=== PATIENT | male | born 1960 | race Caucasian/White ===

== ENCOUNTER 2016-04-25 11:59 | Day surgery (SDC) | payer MEDICARE, OTHER ==
[~2016-04-25] VITALS: Ht 167.6 cm; Wt 80.8 kg
[~2016-04-25 11:59] MED LIST: ALBU18HF INH; ALPR0.5T8 PO; AMBIEN10 M1 PO; ASPI-973 PO; AZIT500T5 PO; BACL10TA PO; BUSP7.5T5 PO; MELO7.5O PO; NICO1PAT16 TRANSDERM; SILD100T PO; Sodium Chloride LOK Flush 10 mL Syringe IV PRN; [UNRECOGNIZED DRUG - CODE] PO; fentaNYL-PF 50 mCg/mL 2 mL Inj IVPUSH PRN
[2016-04-25 12:33] VITALS: BP 136/102; PULSE 90; RESP 14; O2SAT 94
[2016-04-25] MEDS: 0.9% Sodium Chloride 1,000 ML IV PRN ×2 (12:36→13:33)
--- NOTE | 2016-04-25 14:11 | PCM.ENDCOL ---
Colonoscopy Date of Service: Apr 25, 2016 Physician Woody Roth MD Indication for Procedure Personal history of colon polyp Post Procedure Dx & Findings: Polyp hemorrhoids and diverticula Procedure Colonoscopy Prep adequate Withdrawal 13 minutes PROCEDURE IN DETAIL: After unremarkable examination Olympus videocolonoscope was inserted into patient's anal canal and was advanced to cecum. Landmarks are identified including the risk of valve and appendiceal orifice. Scope was withdrawn systematically. The mucosa of the cecum, ascending, transverse, descending, sigmoid, rectal mucosa lined with whitish, pink, smooth, glistening, normal-appearing mucosa, normal fine branching, underlying vascularity, normal haustra. The patient tolerated procedure and was transported to observation area. In the cecum, there was a 2 cm patch of irregular mucosa. Narrow banding done. No clear adenomatous pattern. However the mucosal pattern in this area was slightly different from the surrounding area. It was not consistent with hyperplastic pattern either. Biopsy obtained using cold forceps. In the descending colon there was a 3 mm polyp was resected completely using cold snare. In the rectosigmoid area, there were 3 less than 1 mm polyp which was resected completely using cold forceps. In the sigmoid colon there are several small diverticuli. In the rectum retroflexion was done which showed hemorrhoids anal canal was inspected carefully and the way out and hemorrhoids noted. Impression Polyp 4 status post complete removal Subtle mucosal pattern change noted in the cecum status post biopsy Hemorrhoids Diverticuli Recommendation Repeat colonoscopy 3 years. Presedation Assessment Risks and Benefits Informed consent was obtained from the patient after all risks and benefits including but not limited to drug reaction, infection, pain, bleeding, perforation, as well as alternatives were discussed. Patient monitoring Continuous pulse oximetry, cardiac monitoring, blood pressure monitoring, IV access, and oxygen at 2L per nasal cannula. Periprocedural Fentanyl: Fentanyl 125mcg Incrementally Midazolam: Midazolam 6mg Incrementally Complications There were no periprocedural complications identified. Post Procedure Plan Post Procedure Recommendations 1. Restrict activities today. 2. Resume normal activities in the morning. 3. Resume medications. 4. Patient informed of normal post procedure side effects as bloating, drowsiness, blood streaking in the stool. 5. average risk CRCS. If colon polyps come back as: -Hyperplastic- can repeat colonoscopy in 10 years -Tubular adenoma- repeat colonoscopy in 5 years -Tubulovillous/villous adenoma- repeat colonoscopy in 3 years -If any dysplasia- return to clinic as soon as possible 6. Please don't hesitate to call me with any questions. Woody Roth MD Apr 25, 2016 14:11
[2016-04-25 14:13] VITALS: BP 120/82; PULSE 74; RESP 15; O2SAT 98
[2016-04-25 14:23] VITALS: BP 118/81; PULSE 70; RESP 15; O2SAT 97
[2016-04-25 14:33] VITALS: BP 119/89; PULSE 78; RESP 15; O2SAT 99
--- NOTE | 2016-04-27 16:32 | PATH ---
SURGICAL PATHOLOGY Attending Physician:Woody Roth M.D. CASE STATUS: Signed Out PATIENT NAME: MATEO DE LA CRUZ PID: [id number] : 1960 DATE COLLECTED:04/25/2016 00:00 SPECIMEN: 1: Colon, Biopsy 2: Colon, Biopsy 3: Colon, Biopsy CLINICAL HISTORY: 1). MUCOSAL PROMINENCE OF THE CECUM BIOPSY 2). DESCENDING COLON POLYP 3). RECTO-SIGMOID POLYPS FINAL DIAGNOSIS: 1.CECUM, MUCOSAL PROMINENCE, BIOPSY: COLONIC MUCOSA WITH NO SIGNIFICANT DIAGNOSTIC ABNORMALITY. NEGATIVE FOR DYSPLASIA AND MALIGNANCY. 2.DESCENDING COLON, POLYP, BIOPSY: TUBULAR ADENOMA. 3.RECTOSIGMOID COLON, POLYPS, BIOPSIES: HYPERPLASTIC POLYPS. ICD10 CODE D12.4 GROSS DESCRIPTION: The specimen is received in three formalin filled containers labeled with the patient's name. 1). The specimen is sublabeled "mucosal prominence of the cecum" and consists of 2 portions of tissue which aggregate to 0.3 x 0.3 x 0.3 CM. The specimen is entirely submitted in cassette 1A. 2). The specimen is sublabeled "descending colon polyp" and consists of a 0.5 x 0.3 x 0.3 CM portion of tissue which is entirely submitted in cassettes tissue A. 3). The specimen is sublabeled "recto-sigmoid polyps" and consists of 3 portions of tissue which aggregate to 0.3 x 0.3 x 0.2 CM. The specimen is entirely submitted in cassette 3A. 04/26/2016 [facility] MICRO DESCRIPTION: See diagnosis. ICD-9 CODES: CPT CODES: 1: 89174 2: 16320 3: 20150 Electronically Signed Out Jie Cee MD [facility] [address], [place] [address] Technical component performed at [facility], [facility] [address], [address]
== END 2016-04-25 23:59 | disposition home or self-care (01) ==
LOC: END 11:59
PROVIDERS: ATTEND Internal Medicine
DX: Z12.11 Encounter for screening for malignant neoplasm of colon (principal); D12.4 Benign neoplasm of descending colon; K63.5 Polyp of colon; K57.30 Diverticulosis of large intestine without perforation or abscess without bleeding; K64.8 Other hemorrhoids; Z86.010 Personal history of colon polyps; I10 Essential (primary) hypertension; G47.00 Insomnia, unspecified; F41.8 Other specified anxiety disorders; G62.9 Polyneuropathy, unspecified; Z79.51 Long term (current) use of inhaled steroids; Z79.82 Long term (current) use of aspirin
CPT/HCPCS: 45385; 88305; 99153; G0500; J2250; J3010; J7030